=== PATIENT | male | born 1930 | race Caucasian/White ===

== ENCOUNTER 2016-07-31 11:22 | Inpatient (IN) | payer MEDICARE, BC ==
--- NOTE | ~2016-07-31 | EKG ---
PATIENT: VIKTOR DIALLO UNIT #: [id number] Ventricular Rate: 50 BPM Atrial Rate: 50 BPM P-R Interval: 218 ms QRS Duration: 100 ms Q-T Interval: 418 ms QTC Calculation(Bezet): 381 ms P [place]: 30 degrees Calculated R [place]: 15 degrees Calculated T [place]: 39 degrees Diagnosis Line: Sinus bradycardia with 1st degree A-V block Diagnosis Line: Minimal voltage criteria for LVH, may be normal Diagnosis Line: variant Diagnosis Line: Borderline ECG Diagnosis Line: When compared with ECG of 01-AUG-2016 07:34, Diagnosis Line: No significant change was found Diagnosis Line: Confirmed by ALLISON DIANA MD ([id number]) on 08/02/2016 Diagnosis Line: 8:02:32 PM INTERPRETING MD: LEBRON DANG
--- NOTE | ~2016-07-31 | EKG ---
PATIENT: VIKTOR DIALLO UNIT #: [id number] Ventricular Rate: 47 BPM Atrial Rate: 47 BPM P-R Interval: 220 ms QRS Duration: 102 ms Q-T Interval: 436 ms QTC Calculation(Bezet): 385 ms P [place]: 32 degrees Calculated R [place]: 22 degrees Calculated T [place]: 56 degrees Diagnosis Line: Sinus bradycardia with 1st degree A-V block Diagnosis Line: Otherwise normal ECG Diagnosis Line: When compared with ECG of 26-OCT-2012 13:33, Diagnosis Line: SC interval has increased Diagnosis Line: Vent. rate has decreased BY 29 BPM Diagnosis Line: Confirmed by RODERICK WARREN MD ([id number]) on 07/31/2016 Diagnosis Line: 11:02:33 PM INTERPRETING MD: KELVIN DANG
--- NOTE | ~2016-07-31 | MR122 ---
[facility] A Service of [facility] RADIOLOGY TEXT RESULTS PATIENT: VIKTOR DIALLO LOCATION: [facility] : 29 UNIT #: [id number] AGE: [address]: Tiffani Inman MD SEX: M ORDER DR: [id number] [facility] [address] [facility]. [place], [place] [address] [id number] MR#: [id number] Acc #: [id number] NAME: VIKTOR DIALLO : 1930 SEX: M STUDY DATE/TIME: 07/31/2016 12:30 UNIT: TAMIKA ROOM: STUDY DESCRIPTION: MR MRA Head Wo Contrast Attending Physician: Kj Harris M.D. Ordering Physician: Kj Harris M.D. Primary Care Physician: Natanael Max M.D. MRI CENTER REPORT This report is preliminary unless electronic signature is present. EXAM Head MRA without contrast, 07/31/2016. PROCEDURE Axial sygg-pf-mzmqve head MRA with three-dimensional reformats. COMPARISON STUDIES Head MRI same date. CLINICAL HISTORY 2 days of dizziness and frequent falls. FINDINGS Both vertebral arteries and the basilar artery and both internal carotid arteries are patent. There is a type right posterior cerebral origin. The left posterior communicator if patent is tiny. The anterior communicator is patent. There is symmetric vascularity without aneurysm or flow-limiting stenosis. IMPRESSION Normal head MRA. No evidence of intracranial aneurysm or flow-limiting stenosis, branch vessel occlusion, or other acute abnormality. Dictated by... Julio César Bernard M.D. THIS IS AN ELECTRONICALLY VERIFIED REPORT Julio César Bernard M.D. at 08/02/2016 5:06 PM TEV/tmw [facility] A Service of [facility] RADIOLOGY TEXT RESULTS PATIENT: VIKTOR DIALLO LOCATION: [facility] 340-01 : 29 UNIT #: [id number] AGE: [address]: Tiffani Inman MD SEX: M ORDER DR: TD: 07/31/2016 14:48 JOB #: [id number] MRI CENTER REPORT Page 1 of 1 COPY
--- NOTE | ~2016-07-31 | MR18 ---
[facility] A Service of [facility] RADIOLOGY TEXT RESULTS PATIENT: VIKTOR DIALLO LOCATION: [facility] [address] : 29 UNIT #: [id number] AGE: [address]: Tiffani Inman MD SEX: M ORDER DR: [id number] [place] [id number] [facility]. [place], [place] [address] [id number] E MR#: [id number] Acc #: [id number] NAME: VIKTOR DIALLO : 1930 SEX: M STUDY DATE/TIME: 07/31/2016 12:10 UNIT: TAMIKA ROOM: STUDY DESCRIPTION: MR Brain Wo Contrast Attending Physician: Kj Harris M.D. Ordering Physician: Kj Harris M.D. Primary Care Physician: Natanael Max M.D. MRI CENTER REPORT This report is preliminary unless electronic signature is present. EXAM Brain MRI without contrast DATE OF STUDY 07/31/2016 PROCEDURE Routine unenhanced brain MRI. COMPARISON Head CT dated 05/04/2016. CLINICAL HISTORY Dizziness when standing, frequent falls past 2 days. FINDINGS There is no MR evidence of acute ischemia. There is no hemorrhage or hydrocephalus or extraaxial fluid collection. Normal flow voids are seen in the cerebral vessels. There is volume loss and mild nonspecific white matter change but no acute abnormality is seen. There is a single focus of gradient hypointensity in the right occipital region probably the result of some prior hemorrhage or other insult, but no acute abnormality is seen. IMPRESSION Volume loss and kdir-lo-rkvpihoo nonspecific white matter changes but no evidence of acute hemorrhage or mass or acute ischemia or other acute abnormality. Dictated by... Julio César Bernard M.D. [facility] A Service of [facility] RADIOLOGY TEXT RESULTS PATIENT: VIKTOR DIALLO LOCATION: [facility] [address] : 29 UNIT #: [id number] AGE: [address]: Tiffani Inman MD SEX: M ORDER DR: THIS IS AN ELECTRONICALLY VERIFIED REPORT Julio César Bernard M.D. at 08/02/2016 5:06 PM TEV/va TD: 07/31/2016 14:45 JOB #: [id number] MRI CENTER REPORT Page 1 of 1 COPY
--- NOTE | ~2016-07-31 | EKG ---
PATIENT: VIKTOR DIALLO UNIT #: [id number] Ventricular Rate: 52 BPM Atrial Rate: 52 BPM P-R Interval: 218 ms QRS Duration: 102 ms Q-T Interval: 432 ms QTC Calculation(Bezet): 401 ms P [place]: 42 degrees Calculated R [place]: 30 degrees Calculated T [place]: 58 degrees Diagnosis Line: Sinus bradycardia with 1st degree A-V block Diagnosis Line: Otherwise normal ECG Diagnosis Line: When compared with ECG of 31-JUL-2016 10:49, Diagnosis Line: No significant change was found Diagnosis Line: Confirmed by RODERICK WARREN MD ([id number]) on 08/01/2016 Diagnosis Line: 10:18:43 PM INTERPRETING MD: KELVIN DANG
--- NOTE | ~2016-07-31 | CO ---
Unit #: [id number] #: [id number] Patient: VIKTOR DIALLO [id number] [address] [place], [place] [address] [id number] I MR#: [id number] NAME: VIKTOR DIALLO ROOM: 340 Age: 85 Sex: M Admission Date: 07/31/2016 : 1930 Attending Physician: Tiffani Inman M.D. Primary Care Physician: Natanael Max M.D. CONSULTATION REPORT REASON FOR CONSULTATION Bradycardia. HISTORY OF PRESENT ILLNESS This is an 85-year-old white male, who presented to the emergency room after a fall. The patient states he had dizziness and was unable to get out of bed this morning and he fell to the floor. He denies any loss of consciousness. He said two days ago, he fell again while pushing a car. He was bending over at that time. He has been seen by Dr. Kahn in the past, the last time at the office in 2014, where he has known paroxysmal supraventricular tachycardia and premature ventricular complexes. He has been on metoprolol. According to his records, the patient had some mild orthostatic hypotension and was told to increase in fluid intake. He had a cardiac catheterization in 2011, where he was found to have angiographically normal coronaries. He had no significant valvular heart disease per echocardiogram. His cardiac enzymes and troponin were negative. His EKG showed no acute ischemic changes; however, he was bradycardic where his heart rate was 47 beats per minute. On telemetry, his heart rate was as low as 40 beats per minute. He was mildly orthostatic in the emergency room, where his systolic blood pressure dropped from 160 to 138 mmHg. PAST MEDICAL HISTORY 1. Cardiac catheterization on 08/10/2011 shows angiographically normal coronaries. Normal left ventricular systolic function. 2. A 2D echocardiogram on 04/10/2013 showed an ejection fraction equal to greater than 55% with trace mitral regurgitation and ifph-qo-ifufhymq tricuspid regurgitation. 3. Hypertension. 4. Hyperlipidemia. 5. History of transient ischemic attack. 6. 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 7. BPH. 8. Rheumatoid arthritis. 9. Nonsmoker. PAST SURGICAL HISTORY 1. Right middle lobe lung resection. 2. Back surgery. 3. Cholecystectomy. 4. Cataract extraction. 5. Hernia repair. Unit #: [id number] #: [id number] Patient: VIKTOR DIALLO SOCIAL HISTORY The patient is . He has never smoked. No illicit drug or alcohol use. FAMILY HISTORY Noncontributory. ALLERGIES No known drug allergies. HOME MEDICATIONS Toprol-XL 25 mg b.i.d., trazodone, oxazepam, Proscar, Plavix, methotrexate, Colace, methylprednisolone. REVIEW OF SYSTEMS CONSTITUTIONAL: Negative for fever or chills. Has no weight gain or weight loss. HEENT: No headache, no vision change, difficulty with swallowing. Positive for dizziness. CARDIOVASCULAR: Has no symptoms of angina. Unaware of palpitations. Denies paroxysmal nocturnal dyspnea or orthopnea. Denies syncope or near syncope. RESPIRATORY: Negative for dyspnea, cough, or hemoptysis. GASTROINTESTINAL: No abdominal pain, nausea, or vomiting. No constipation. No melena. EXTREMITIES: Negative for lower extremity edema. PHYSICAL EXAMINATION VITAL SIGNS: Blood pressure 166/66 standing, 158/78 sitting, 138/81 standing. Heart rate 44, temperature 97.4, BMI 24. GENERAL: This is a very pleasant 85-year-old elderly white male, who is in no acute distress. NEUROLOGIC: He is awake, alert, and oriented. There were no focal weaknesses. NECK: Trachea is midline. No thyromegaly or lymphadenopathy. No jugular venous distention. HEART: S1, S2 with no S3 or S4. With a grade 2/6 systolic murmur heard along the right sternal border. No rubs or clicks. Regular rate and rhythm, that is bradycardic. ABDOMEN: Soft and nontender with bowel sounds are present. EXTREMITIES: Without leg edema. SKIN: Warm and dry. DIAGNOSTIC STUDIES LABORATORY RESULTS: Hemoglobin 12.0, hematocrit 37.0, platelet count 93, white count 4.0. Sodium is 140, potassium 4.0, BUN 9, creatinine 1.0, glucose 96, magnesium 2.0, troponin less than 0.05. IMAGING STUDIES: MRI of the head shows volume loss with lmpt-ze-lhvxzxvd nonspecific white matter changes. No hemorrhage or acute ischemia. MRA of the head and neck normal. CARDIOVASCULAR STUDIES: Electrocardiogram, sinus bradycardia with a rate of 47 beats per minute with a first-degree AV block. IMPRESSION Unit #: [id number] #: [id number] Patient: VIKTOR DIALLO 1. Dizziness, status post fall. 2. Sinus bradycardia. 3. Normal coronaries per cardiac catheterization in 2011. 4. History of paroxysmal supraventricular tachycardia/premature ventricular contractions. 5. Preserved left ventricular systolic function with ejection fraction of greater than 55%. 6. Hypertension. 7. Hyperlipidemia. 8. Mild orthostatic hypotension. PLAN 1. Cardiology was consulted for sinus bradycardia. The patient is on metoprolol. We will discontinue. 2. Continue to trend cardiac enzymes, troponin, and EKG. 3. TSH will be checked. 4. Orthostatic blood pressures will be obtained. 5. Schedule for a 2D echocardiogram to evaluate systolic murmur. 6. We will follow the patient with you. Thank you for allowing us to assist with this patient's care. Dictated by... Veda Lind/tara TD: 08/01/2016 06:23 JOB #: [id number] CC: Sue Rodarte M.D. CONSULTATION REPORT Page 1 of 1 X Gustavo Ratliff APRN CONSULTATION REPORT
--- NOTE | ~2016-07-31 | DS ---
Unit #: [id number] #: [id number] Patient: VIKTOR DIALLO [id number] [address] [place], [place] [address] [id number] I MR#: [id number] NAME: VIKTOR DIALLO ROOM: 340 Age: 85 Sex: M Admission Date: 08/01/2016 : 1930 Discharge Date: 08/04/2016 Attending Physician: Tiffani Inman M.D. Primary Care Physician: Natanael Max M.D. DISCHARGE SUMMARY REASON FOR ADMISSION Dizziness, frequent falls. HISTORY OF PRESENT ILLNESS/HOSPITAL COURSE The patient is an 85-year-old male with underlying history of BPH, prostate nodules, SVT, TIA, hypertension, hyperlipidemia, chronic insomnia issues who presented secondary to above off and on over the past several weeks. He has had numerous falls, which have led to several orthopedic issues, including a broken wrist, as well as incidents where he was found outside (1) essentially after having numerous mechanical falls and feeling dizzy quite often. In regard to the same, he was admitted. Concern for possible underlying CVA was made; therefore, we placed consultation to Dr. Luong. The patient ultimately underwent an MRI of the brain without contrast on 07/31/2016. There was no evidence of any acute ischemic change noted. Volume loss was noted. (2) MRA head was performed, which did not reveal any acute process, as well as MRA neck. Neurology service subsequently signed off, and in regard to the patient's prior history of SVT and syncopal episodes, we placed consultation to Dr. Sabillon of cardiology service. The patient underwent two-D echocardiogram showing ejection fraction 50% to 55% with mild valvular heart disease, including mild aortic stenosis. His blood pressure regimen was adjusted appropriately, and no further cardiac workup was done. At this point in time the patient appears stable. Physical and occupational therapy services have both evaluated the patient and felt as though he is quite ataxic, and he is very unstable in his gait. Both services have recommended rehab. At time of discharge appropriate arrangements have been made for him to be transitioned to a rehab facility. It should be noted the patient stated that he takes 2 trazodone 100 mg tablets at bedtime, as well as another sleeping medication, oxazepam to help him sleep. I encouraged him and notified him that both of these medications may cause frequent falls at home and may be the underlying etiology of his other symptoms. Therefore, these medications were adjusted. The trazodone was decreased to 100 mg p.o. q.h.s. His oxazepam was ultimately discontinued. Benzodiazepines should be used with caution in this elderly gentleman, as they seem likely to be causing some of his falls. Unit #: [id number] #: [id number] Patient: VIKTOR DIALLO FINAL DISCHARGE DIAGNOSES 1. Frequent falls. 2. Ataxia. 3. Weakness. 4. Chronic immobility syndrome. 5. Prior history of transient ischemic attack. 6. Hypertension. 7. Hyperlipidemia. 8. Prior history of supraventricular tachycardia, palpitations. 9. Bmla-sw-ijtbluqs dementia. 10. Chronic insomnia issues. DISCHARGE MEDICATIONS 1. Medrol 4 mg p.o. daily. 2. Trazodone 100 mg p.o. q.h.s. 3. Norvasc 5 mg p.o. daily. 4. Colace 100 mg p.o. b.i.d. 5. Hydrochlorothiazide 12.5 mg p.o. q.h.s. 6. Cozaar 25 mg p.o. q.h.s. 7. Proscar 5 mg p.o. daily. 8. Plavix 75 mg p.o. daily. 9. Methotrexate as directed. DISCHARGE CONDITION Stable. DISCHARGE DISPOSITION To rehab. Dictated by... Sue Lopez/iker TD: 08/04/2016 11:51 JOB #: [id number] DISCHARGE SUMMARY Page 1 of 1 X Tiffani Inman MD X DISCHARGE SUMMARY
--- NOTE | ~2016-07-31 | CO ---
Unit #: [id number] #: [id number] Patient: VIKTOR DIALLO [id number] [facility] [address] [facility]. [place] [id number] I MR#: [id number] NAME: VIKTOR DIALLO ROOM: 340 Age: 85 Sex: M Admission Date: 07/31/2016 : 1930 Attending Physician: Tiffani Inman M.D. Primary Care Physician: Natanael Max M.D. Consultation Date: 08/01/2016 CONSULTATION REPORT PRIMARY CARE PHYSICIAN Natanael Max M.D. REASON FOR CONSULTATION Dizziness and falls. PATIENT IDENTIFICATION This is an 85-year-old right-handed white male, who was evaluated in room 340 at [facility]. SOURCE OF INFORMATION The patient and evaluation done by admitting team, and also the patient's . PROBLEM LIST 1. Benign prostatic hypertrophy. 2. Hyperlipidemia. 3. Prior TIA. 4. History of SVT. 5. Prostate nodule. 6. Hypertension. 7. Right lobectomy. 8. Back surgery. 9. Cholecystectomy. 10. Hernia repair. 11. Cardiac cath. 12. Knee surgery. 13. Episodes of dizziness and fall and almost always it is when he is up and about most of the time, when he gets up, but sometimes when he was walking he feels like that. HISTORY OF PRESENT ILLNESS This is an 85-year-old gentleman with past medical history as discussed above, who is actually very unsteady and he gets up and he feels lightheaded. He has fallen. He has never had passing out episodes. He feels lightheaded and dizzy. No seizures. No passing out episode. This has been going on for several months and the reason he was admitted, because it was not improving and we wanted to make sure he has PT/OT evaluation. His MRI was unremarkable. His MRA was unremarkable. I look at his labs previously, he had suboptimal B12 levels. H and H slightly decreased at 12.0 and 37, platelet count was 93, even nothing as short of his MRA was unremarkable. PT/OT to see him. There is no acute stroke. There is nothing suggesting Unit #: [id number] #: [id number] Patient: VIKTOR DIALLO R seizures. He is very unsteady. He could hardly get up and transfer from bed to the bedside chair. He has stooped posture and he just sort of rushed to the chair to sit. I am not sure how much is this gentleman doing at home. Nothing suggesting parkinsonian type situation. No tremors. PAST MEDICAL HISTORY As discussed above. PAST SURGICAL HISTORY As discussed above. FAMILY HISTORY Multiple siblings have had cardiac rhythm problems and have pacemakers. ALLERGIES None. HOME MEDICATIONS Toprol-XL, Proscar, Plavix, oxazepam, Trexall, Medrol, Desyrel, amitriptyline. SOCIAL HISTORY He is . Lives with his . No tobacco, alcohol, or drug use. REVIEW OF SYSTEMS Detailed review of system was attempted and mostly as discussed in the history of present illness. There are no weight issues. There is no fever chills, rigors, or sweats. HEENT: No headaches, no double vision, earache, runny nose, or sore throat. CARDIOVASCULAR: No chest pain, clubbing, cyanosis, orthopnea, or palpitations. PULMONARY: No shortness of air, cough, or expectoration. GI: No nausea, vomiting, diarrhea, or constipation. : He has benign prostatic hypertrophy. BACK: No back problem. EXTREMITIES: Weakness. PSYCHIATRIC: No psychotic issue. NEUROLOGIC: Dizziness. No other hematologic, dermatologic, or endocrine problem. PHYSICAL EXAMINATION VITAL SIGNS: Temperature 98 degrees Fahrenheit, respirations 18 per minute, his blood pressure was 152/64 lying down, 154/66 sitting up, with pulse of 58, and when he stood up, his heart rate went to 82. His blood pressure was 149/75. No pain was reported. Oxygen saturations were 92% to 98%. NEUROLOGIC: The patient is awake. He is alert. He is struggling with exact date. He thinks it is or 31 of July. He knows where he is. He can name and he can follow commands. No right/left confusion. No finger agnosia. Cranial nerve examination demonstrates full diggs of vision to confrontation. Eye movements are conjugate. I did not see any ptosis. I did not see any nystagmus. Extraocular movements are intact. Sensation Unit #: [id number] #: [id number] Patient: VIKTOR DIALLO on the face and scalp are normal. Strength of muscles of facial expression normal. Hearing seemed to be intact bilaterally. Tongue was midline. Uvula was midline. Palate elevation is normal. Head turning and shoulder shrugs were unremarkable. Motor examination demonstrated normal bulk and tone. Strength was 5-/5, but he is very unsteady. He may have some proximal lower extremity weakness. I did not see any pattern of weakness otherwise. Sensory examination intact for soft touch and pain sensation. No extinction was seen. Romberg was not evaluated, but very unsteady and broad-based gait. I could not get any reflexes. Toes are equivocal. Coordination was normal gerjun-ki-lcyp and qojwit-cc-vvtx, when he tried mtbw-nh-ewuy. DIAGNOSTIC STUDIES LABORATORY RESULTS: Reviewed. IMAGING STUDIES: Reviewed. IMPRESSION An 85-year-old with dizziness and falls, mostly when he gets up. I agree with admitting team that this may be hemodynamic. There is nothing suggesting seizure. There is nothing suggesting stroke or vertebrobasilar insufficiency. My recommendation is PT/OT and rehab evaluation and check his B12 level, folate level, and go from there, does not look like otherwise primary neurologic issue. Call me for any other questions, issues, or concerns and further treatment will be based on any findings. His TSH was 1.94, so that was okay. Dictated by... Sue Cortes/tara TD: 08/02/2016 03:37 JOB #: [id number] CONSULTATION REPORT Page 1 of 1 X Eliseo Luong MD CONSULTATION REPORT
--- NOTE | ~2016-07-31 | HP ---
Unit #: [id number] #: [id number] Patient: VIKTOR DIALLO [id number] [facility]. [place], [place] [address] [id number] MR#: [id number] NAME: VIKTOR DIALLO ROOM: 52821 Age: 85 Sex: M Admission Date: 07/31/2016 : 1930 Attending Physician: Madiha Weber M.D. Primary Care Physician: Natanael Max M.D. HISTORY AND PHYSICAL CHIEF COMPLAINT Dizziness and falls. HISTORY OF PRESENT ILLNESS The patient is an 85-year-old male with a past medical history of BPH, prostate nodule, SVT, TIA, hypertension, and hyperlipidemia, who presented to the emergency department for evaluation of the above. The patient states that he has had dizziness and frequent falls for the past couple of months. He apparently had a fall in April that resulted in a "broken wrist." He states that he saw his primary care physician who scheduled him to see Dr. Hobbs on August 26, 2016. This morning he felt so dizzy that he was unable to stand. He states that the falls have been increasing in frequency. He denies any feelings of lightheadedness prior to falling. He denies that the room is spinning. However, he continues to describe the sensation as "dizzy." Of note, the patient is on Toprol-XL for palpitations. He was taking a half a tablet three times daily until a couple of months ago when the dose was increased to two full tablets b.i.d. The patient denies any recent cough or cold symptoms and no fever. He did have vomiting and diarrhea that have resolved. He denies any urinary symptoms. In the emergency department, initial heart rate was 47 and blood pressure 149/71. Laboratory is essentially unremarkable. The patient had an MRI of the brain that showed nothing acute. He had an MRA of the head and neck that showed no hemodynamically significant stenosis. The ER physician discussed this case with Dr. Luong, who recommended Decadron which was given. The patient is being admitted to [facility] for evaluation and further treatment. PAST MEDICAL HISTORY 1. Admission to [facility] October 07-2015, for hypokalemia and acute kidney injury. 2. Benign prostatic hypertrophy. 3. Prostate nodule. The patient has seen Dr. Bailey in the past. 4. History of SVT. 5. Transient ischemic attack. 6. Hyperlipidemia. PAST SURGICAL HISTORY 1. Right lobectomy. 2. Back surgery. 3. Cholecystectomy. 4. Hernia repair. Unit #: [id number] #: [id number] Patient: VIKTOR DIALLO 5. Cardiac catheterization August 10, 2011, showed angiographically normal coronary arteries and normal LV function. 6. Knee surgery. SOCIAL HISTORY The patient lives with his . There is no tobacco or alcohol use. He walks with a walker. FAMILY HISTORY Notable for multiple siblings having pacemakers. ALLERGIES No known allergies. HOME MEDICATIONS 1. Toprol-XL. 2. Proscar. 3. Plavix. 4. Oxazepam. 5. Trexall. 6. Medrol. 7. Desyrel. 8. Amitriptyline. Home medications will need to be reviewed and verified. REVIEW OF SYSTEMS A complete review of systems is negative except as indicated in the History of Present Illness. PHYSICAL EXAMINATION VITAL SIGNS: Temperature is 97.4, pulse 47, respirations 20, blood pressure 149/71, and oxygen saturation is 96% on room air. GENERAL: Patient is a male who is awake, alert, and in no acute distress. HEENT: Head is atraumatic. Mucous membranes are moist. NECK: Supple. Trachea is midline. CARDIOVASCULAR: Bradycardic in the 40s. LUNGS: Clear to auscultation bilaterally with no increased work of breathing. ABDOMEN: Soft and nontender with bowel sounds present in all four quadrants. EXTREMITIES: Nontender with no pedal edema. NEUROLOGIC: Patient is awake and alert. There is appreciable nystagmus. Dccenn-vj-fxur is intact. Rapid alternating movements are slow but intact. Gait was not assessed. PSYCHIATRIC: Mood and affect are normal. Patient is cooperative. SKIN: Skin of examined areas is warm and dry. DIAGNOSTIC STUDIES LABORATORY: Urinalysis is negative. Troponin is less than 0.05. Helicobacter pylori screen was negative. Comprehensive metabolic panel is completely normal. Magnesium is 2. CBC notable for a hemoglobin and hematocrit of 12 and 37, respectively, and platelets are 93,000. IMAGING: MRI of the brain shows nothing acute. MRA of the head and neck shows no hemodynamically significant stenosis. Unit #: [id number] #: [id number] Patient: VIKTOR DILALO CARDIOLOGY: EKG shows sinus bradycardia with first degree AV block and a rate of 47 beats per minute. ASSESSMENT The patient is an 85-year-old male with: 1. Ataxia. 2. Bradycardia. The patient's Toprol-XL was increased a couple of months ago. This could certainly be contributing. 3. Frequent falls. 4. Thrombocytopenia. The patient's platelet count has been as low as 97. It is 93 today. 5. Benign prostatic hypertrophy. 6. Prostate nodule. 7. History of supraventricular tachycardia. 8. Transient ischemic attack. 9. Hypertension. 10. Hyperlipidemia. PLAN 1. Admit to intermediate level for observation. 2. Normal saline at 75 mL/hour. 3. Healthy heart diet if passes bedside swallow. 4. Fall precautions. 5. Bedrest. 6. PT/OT to evaluate and treat. 7. Neuro checks. 8. Consult Dr. Luong regarding ataxia. 9. Serial cardiac enzymes. 10. TSH. 11. Monitor heart rate closely. 12. Hold Toprol-XL. 13. Consult Dr. Napier regarding bradycardia. 14. Repeat labs in the morning. 15. SCDs for DVT prophylaxis. 16. Additional workup and consultants based on above. 1. Dictated by Madiha Weber M.D. AW/beto TD: 07/31/2016 16:51 JOB #: [id number] HISTORY AND PHYSICAL Page 1 of 1 X Madiha Weber MD X HISTORY AND PHYSICAL
--- NOTE | ~2016-07-31 | MR134 ---
[facility] A Service of [facility] & [facility] RADIOLOGY TEXT RESULTS PATIENT: VIKTOR DIALLO LOCATION: [facility] 340-01 : 29 UNIT #: [id number] AGE: [address]: Tiffani Inman MD SEX: M ORDER DR: [id number] [facility] [address] [place], [place] [address] [id number] MR#: [id number] Acc #: [id number] NAME: VIKTOR DIALLO : 1930 SEX: M STUDY DATE/TIME: 07/31/2016 12:39 UNIT: [facility] ROOM: STUDY DESCRIPTION: MR MRA Neck Wo Contrast Attending Physician: Kj Harris M.D. Ordering Physician: Kj Harris M.D. Primary Care Physician: Natanael Max M.D. MRI CENTER REPORT This report is preliminary unless electronic signature is present. EXAM MR angiogram neck without contrast dated 07/31/2016. COMPARISON MRI and MRA brain dated 07/31/2016 The current study is also 07/31/1916. HISTORY Dizziness on standing, multiple falls. Last 4 was 2 days ago. Patient stated that when he woke up this a.m. he was not able to hour and had to get his to help him up out of the bed. FINDINGS Source and 3-D reconstruction MIP images of the neck arteries were obtained without contrast. Bilateral common, internal and external carotid arteries demonstrate normal expected course, caliber and flow. Bilateral vertebral arteries demonstrate normal expected flow. Subtle narrowing of caliber in the distal third of the right vertebral artery involving a short segment (series 3, image 76). Though it was suspicious for focal tiny segment of narrowing, it is not well seen in the reconstruction MIP images. IMPRESSION No hemodynamically flow-limiting significant stenosis in bilateral internal carotid artery bulbs per NASCET criteria. Dictated by... Sara Carey M.D. THIS IS AN ELECTRONICALLY VERIFIED REPORT Sara Carey M.D. at 08/03/2016 8:32 AM CPR/cmm STS. [facility] A Service of [facility] & [facility] RADIOLOGY TEXT RESULTS PATIENT: VIKTOR DIALLO LOCATION: [facility] 340-01 : 29 UNIT #: [id number] AGE: [address]: Tiffani Inman MD SEX: M ORDER DR: TD: 07/31/2016 15:05 JOB #: [id number] MRI CENTER REPORT Page 1 of 1 COPY
[2016-07-31 11:02] LABS: BASOPHIL% 0.5 % (0-2.5); EOSINOPHIL# 0.2 X10e3 (0-0.7); EOSINOPHIL% 5.6 % (0.0-7.0); LYMPHOCYTE# 1.3 X10e3 (1.0-3.5); MEAN CELL VOLUME 91.4 FL (83-96); MEAN CORPUSCULAR HEMOGLOBIN 29.6 PG (28-34); MEAN CORPUSCULAR HGB CONC 32.4 g/dL (30-36); MEAN PLATELET VOLUME 8.6 FL (6.5-11.5); MONOCYTE# 0.6 X10e3 (0-1.0); MONOCYTE% 15.3 % (3.0-12.0); NEUTROPHIL# 1.9 X10e3 (1.5-7.1); NEUTROPHIL% 46.6 % (40-75); RED BLOOD COUNT 4.05 X10e (3.90-5.60); RED CELL DISTRIBUTION WIDTH 15.6 % (11.0-15.5)
[2016-07-31 11:15] LABS: DIFF IND YES; PLATELET COUNT 93 X10e3 (140-420)
[2016-07-31 11:17] LABS: PLATELET ESTIMATE DECREASED (NORMAL)
[2016-07-31 11:18] LABS: ANISOCYTOSIS SL
[~2016-07-31 11:22] MED LIST: ACETAMINOPHEN PO; AMITRYPTYLINE PO; ASPIRINEC PO; CLOPIDOGREL75 MG PO; COLACE PO; DESYREL100 MG PO; FISH OIL 1,0001 CAP PO; FISH OIL500 M1 PO; LOVASTATIN20 MG PO; MEDROL2 MG PO; OXAZEPAM10 MG PO; PLAVIX PO; PROSCAR5 MG PO; STOOL SOFTENER100 M1 PO; TOPROL XL PO; TRAZODONE HCL100 MG PO; TRAZODONE PO; TREXALL5 MG PO; [UNRECOGNIZED DRUG - CODE] PO
[2016-07-31 11:25] LABS: ALBUMIN SERUM 3.7 g/dL (3.5-5.0); GLOM FILT RATE Estimated 67.9 mL/min (>60); PROTEIN TOTAL SERUM 6.3 g/dL (6.0-8.3)
[2016-07-31 12:05] LABS: POC - CKMB <1.0 ng/mL (0.0-7.9); POC - TROPONIN <0.05 ng/mL (<=0.05)
[2016-07-31 12:40] LABS: URINE SOURCE CLEAN CATCH
[2016-07-31 12:46] LABS: URINE APPEARANCE CLOUDY; URINE BILIRUBIN NEG (NEG); URINE BLOOD NEG (NEG); URINE COLOR YELLOW; URINE GLUCOSE NEG (NEG); URINE KETONE NEG (NEG); URINE LEUKOCYTE ESTERASE NEG (NEG); URINE NITRATE NEG (NEG); URINE PROTEIN NEG (NEG); URINE SPECIFIC GRAVITY 1.013 (1.003-1.035); URINE UROBILINOGEN 0.2 MG/DL (NEG)
[2016-07-31 12:54] LABS: CULTURE INDICATED? NO
[2016-07-31 17:24] LABS: CK TOTAL 41 IU/L (36-174)
[2016-07-31] MEDS ORDERED: TOPROL PO (18:04)
[2016-07-31] MEDS ORDERED: OXAZEPAM PO (18:05)
[2016-07-31] MEDS ORDERED: DESYREL100 MG PO (18:06)
[2016-07-31] MEDS ORDERED: CLOPIDOGREL75 MG PO (18:06)
[2016-07-31] MEDS ORDERED: [UNRECOGNIZED DRUG - OTHER] (18:07)
[2016-07-31] MEDS ORDERED: PROSCAR5 MG PO (18:07)
[2016-07-31] MEDS ORDERED: STOOL SOFTENER100 M1 PO (18:07)
[2016-07-31] MEDS ORDERED: NORVASC PO (18:08)
[2016-07-31] MEDS ORDERED: METHYLPREDNISOLO4 M1 PO (18:09)
[2016-07-31] MEDS ORDERED: METHOTREXATE2.5 MG (18:11)
[2016-07-31 23:26] LABS: CK TOTAL 55 IU/L (36-174)
[2016-08-01 06:38] LABS: HEMOGLOBIN 11.4 gm/dL (13.0-16.0); MEAN CELL VOLUME 91.5 FL (83-96); MEAN CORPUSCULAR HEMOGLOBIN 29.9 PG (28-34); MEAN CORPUSCULAR HGB CONC 32.7 g/dL (30-36); MEAN PLATELET VOLUME 9.2 FL (6.5-11.5); RED BLOOD COUNT 3.82 X10e (3.90-5.60); RED CELL DISTRIBUTION WIDTH 15.2 % (11.0-15.5); WHITE BLOOD COUNT 5.8 X10e3 (4.0-10.5)
[2016-08-01 06:52] LABS: ALBUMIN SERUM 3.4 g/dL (3.5-5.0); BILIRUBIN,TOTAL 0.6 mg/dL (0.2-2.0); BUN/CREATININE RATIO 21.66; CALCIUM SERUM 9.2 mg/dL (8.4-10.2); CREATININE SERUM 0.6 mg/dL (0.6-1.4); GLOM FILT RATE Estimated 91.1 mL/min (>60); POTASSIUM 3.9 mmol/L (3.5-5.1); PROTEIN TOTAL SERUM 5.7 g/dL (6.0-8.3)
[2016-08-01 14:00] LABS: FOLATE (FOLIC ACID) 19.4 ng/mL (>5.8)
[2016-08-02 07:15] LABS: CHOLESTEROL 132 mg/dL (0-200); HDL CHOLESTEROL 33 mg/dL (29-75); LDL CHOLESTEROL 91 mg/dL (-130); LDL/HDL RATIO 3 RATIO (0-4); TRIGLYCERIDES 42 mg/dL (10-160)
[2016-08-03 06:52] LABS: CALCIUM SERUM 9.3 mg/dL (8.4-10.2); CREATININE SERUM 0.7 mg/dL (0.6-1.4); GLOM FILT RATE Estimated 85.5 mL/min (>60); MAGNESIUM 1.8 mg/dL (1.6-3.0); POTASSIUM 3.6 mmol/L (3.5-5.1)
[2016-08-04 06:49] LABS: BUN/CREATININE RATIO 18.33; CALCIUM SERUM 9.6 mg/dL (8.4-10.2); CREATININE SERUM 0.6 mg/dL (0.6-1.4); GLOM FILT RATE Estimated 91.1 mL/min (>60); MAGNESIUM 1.9 mg/dL (1.6-3.0); POTASSIUM 3.6 mmol/L (3.5-5.1)
== END 2016-08-04 13:35 | DRG 310 ==
LOC: CED 11:22 → CEDOF 15:50 → C3A PCU 08-01 10:35
PROVIDERS: Emergency Medicine; Family Medicine; Psychiatry & Neurology Neurology
DX: R00.1 Bradycardia, unspecified (principal); D69.6 Thrombocytopenia, unspecified; F03.90 Unspecified dementia, unspecified severity, without behavioral disturbance, psychotic disturbance, mood disturbance, and anxiety; R27.0 Ataxia, unspecified; R29.6 Repeated falls; Z91.81 History of falling; R53.1 Weakness; M62.3 Immobility syndrome (paraplegic); I10 Essential (primary) hypertension; Z86.73 Personal history of transient ischemic attack (TIA), and cerebral infarction without residual deficits; E78.5 Hyperlipidemia, unspecified; F51.04 Psychophysiologic insomnia; I95.1 Orthostatic hypotension; N40.0 Benign prostatic hyperplasia without lower urinary tract symptoms; N40.2 Nodular prostate without lower urinary tract symptoms; Z98.49 Cataract extraction status, unspecified eye; Z90.2 Acquired absence of lung [part of]; Z90.49 Acquired absence of other specified parts of digestive tract; M06.9 Rheumatoid arthritis, unspecified
CPT/HCPCS: 70544; 70547; 70551; 80048; 80053; 80061; 81003; 82550; 82553; 82607; 82746; 83735; 84443; 84484; 85025; 85027; 86677; 93005; 93306; 96360; 97110; 97116; 97162; 97166; 97535; 99291; G8978-GP; G8979-GP; G8980-GP; G8987-GO; G8988-GO; G8989-GO; J1100